=== PATIENT | male | born 1950 ===

== ENCOUNTER 2020-10-03 12:40 | Day surgery (SDC) | payer OTHER ==
[2020-10-03] VITALS (10 sets, daily range): BP systolic 100–137; BP diastolic 57–78; PULSE 48–72; TEMP 97.7–99
[~2020-10-03] VITALS: Ht 175.3 cm; Wt 83.5 kg
[2020-10-03] MEDS ORDERED: ONE-A-DAY ESSE1 EACH PO (14:16)
--- NOTE | 2020-10-03 18:09 | NUR ---
PT TO ROOM 323 PER BED WITH REPORT FROM GHULAM CANTU PACU @5310. VSS, CBI TO DD WITH 9500 MLS CREDIT. IV TO LFA. PT IS A/O X3, LUNGS CTA, BOWEL SOUNDS HYPO, PINKISH DRAINAGE TO BARON BAG.
--- NOTE | 2020-10-03 18:51 | NUR ---
REPORT TO ZAY CANTU.
--- NOTE | 2020-10-03 19:02 | NUR ---
RECEIVED CHANGE OF SHIFT REPORT FROM DAY SHIFT NURSE.
--- NOTE | 2020-10-03 19:54 | NUR ---
OBSERVED GROSS MOVEMENT TO BLE AT THIS TIME. DENIES CHEST PAIN/SHORTNESS OF BREATH. DENIES N/V. OBSERVED CATHETER OUTPUT MED TO LIGHT RED, NO CLOTS IN TUBING OBSERVED.
--- NOTE | 2020-10-03 19:56 | NUR ---
IVF LR STILL RUNNING WITH NO PROBLEMS.
--- NOTE | 2020-10-04 02:01 | NUR ---
C/O TOP OF HEAD WITH PRESSURE, CHRONIC C/O AT HOME AND REQUESTED/GIVEN TYLENOL FOR DISCOMFORT. SEE eMAR.
[2020-10-04 04:16] VITALS: BP 129/60; PULSE 59; TEMP 98.1
--- NOTE | 2020-10-04 06:58 | NUR ---
Pt resting in bed at this time. CBI running moderate rate with pink output. No needs stated, Dr Esteves in to see patient.
--- NOTE | 2020-10-04 07:12 | NUR ---
CHANGE OF SHIFT REPORT GIVEN TO DAY SHIFT NURSE, ROLF Peraza RN.
[2020-10-04 07:15] VITALS: BP 120/70; PULSE 54; TEMP 98.2
--- NOTE | 2020-10-04 09:32 | NUR ---
Initial visit; Patient thanked Environmental Journalist for looking in on him and allowing him to witness the miracle that occured when he was injured while serving in the . Environmental Journalist was blessed and thanked patient for sharing and offered prayer before offering God's blessings.
--- NOTE | 2020-10-04 10:09 | NUR ---
Pt has done well this morning. CBI continues to run at moderate to slow rate with fruit punch colored output. He is standing at bedside and reports feeling well.
--- NOTE | 2020-10-04 10:46 | NUR ---
SW met with the patient to discuss discharge plan. The patient lives in [place] with his , Jerri (ph#[phone]). He reports independence with ADLs and does not have any DME. The patient's PCP is Dr. Ariel Landa at the [facility] and he receives his medications through the [facility]. He reports no difficulties obtaining his meds. The patient does not have a DPOA-HC and he was not interested in completing one at this time. The patient plans to return home with his upon discharge. No additional needs at this time.
[2020-10-04 12:15] VITALS: BP 105/64; PULSE 57; TEMP 98.9
--- NOTE | 2020-10-04 13:43 | NUR ---
Pt continues to do well. He has ambulated in the eric and no issues. CBI continues to run at slow to moderate rate with no clots. Pt has no complaints. He is aware that he is staying the night and as long as his output remains clear, the golden will be removed in the morning. pt is tolerateding general diet and drinking plenty of fluids, IV fluids DC'd. Call light within reach.
--- NOTE | 2020-10-04 15:57 | NUR ---
Pt had some complaints of bladder pain but reports feeling okay now. CBI running a slow rate with light pink output. No other complaints, report given to PEPE Shultz
--- NOTE | 2020-10-04 16:00 | NUR ---
Patient resting in bed,, A&Ox3. Denies pain and discomfort. VSS. IV CDI. CBI infusing w/o complications. No further needs expressed from the patient. Call light within reach
[2020-10-04 16:08] VITALS: BP 110/65; PULSE 62; TEMP 98.6
--- NOTE | 2020-10-04 18:31 | NUR ---
Patient laying in bed, denies pain and discomfort. IV CDI. CBI infusing. No further needs expressed from the patient. Call light within reach
--- NOTE | 2020-10-04 19:15 | NUR ---
RECEIVED CHANGE OF SHIFT REPORT FROM DAY SHIFT NURSE.
[2020-10-04 19:16] VITALS: BP 110/59; PULSE 63; TEMP 98.2
--- NOTE | 2020-10-04 20:00 | NUR ---
DENIES CHEST PAIN/SHORTNESS OF BREATH. DENIES NUMBNESS/TINGLING TO EXTREMITIES. DENIES N/V AT THIS TIME, REPORTS HAD BM TODAY AND IS PASSING FLATUS. DENIES ANY BLADDER/PENIS DISCOMFORT AT THIS TIME, OBSERVED NO BLOODY DRAINAGE FROM AROUND CATHETER SITE WITH CATH CARE DONE. REPORTS DID NOT WANT SCD WRAPS WITH SLEEPING TONIGHT.
--- NOTE | 2020-10-04 23:23 | NUR ---
PATIENT SLEEPING, DOES NOT WAKE WHEN DOOR TO ROOM IS OPENED BY STAFF. OBSERVED BREATHING NONLABORED AND EVEN. CBI CONTINUES AT SLOW RATE WITH OUTPUT OF PALE PINK TINGE CATHETER OUTPUT WITH NO CLOTS OBSERVED IN TUBING.
[2020-10-04 23:56] VITALS: BP 105/57; PULSE 53; TEMP 97.9
[2020-10-05 04:12] VITALS: BP 111/62; PULSE 53; TEMP 98.4
--- NOTE | 2020-10-05 07:12 | NUR ---
CHANGE OF SHIFT REPORT GIVEN TO DAY SHIFT NURSECIERRA.
[2020-10-05 07:30] VITALS: BP 124/68; PULSE 66; TEMP 98.6
--- NOTE | 2020-10-05 07:39 | NUR ---
Patient resting in bed. He reports ordering breakfast, denies nausea. Spoke with about priming and pulling cath. Going to completely clamp CBI and reassess. Int. denies pain or pressure. Student nurse assisting in cares today.
--- NOTE | 2020-10-05 09:11 | NUR ---
Follow-up visit; Patient thanked Plant Puller for looking in on him again this morning and wishing him well and offering God's blessings.
--- NOTE | 2020-10-05 11:39 | NUR ---
Patient ready for discharge. rounded. Orders obtained. Patient has completed 6 bottle routine. zimmerman red output, clear no sediment. patient called his ride.
--- NOTE | 2020-10-05 12:45 | NUR ---
Patient given all discharge teaching, he denies questions or concerns. We reviewed diet & activity restrictions. Int dc by student nurse. Patient tolerated lunch. His significant other taking him home. Patient ambulated out with all belonings.
== END 2020-10-05 12:47 | disposition home or self-care (01) ==
LOC: SDCO 12:40 → SURG 18:00 → SDCO 10-05 12:47
DX: N40.1 Benign prostatic hyperplasia with lower urinary tract symptoms (principal); N32.0 Bladder-neck obstruction; R35.0 Frequency of micturition; R39.15 Urgency of urination; R39.12 Poor urinary stream; M19.90 Unspecified osteoarthritis, unspecified site; Z85.828 Personal history of other malignant neoplasm of skin; Z88.8 Allergy status to other drugs, medicaments and biological substances; K21.9 Gastro-esophageal reflux disease without esophagitis; F32.9 Major depressive disorder, single episode, unspecified; F41.9 Anxiety disorder, unspecified; F43.10 Post-traumatic stress disorder, unspecified
CPT/HCPCS: OP; J0690; J2250; J2405; J2704; J3010; J3480; J7120

== ENCOUNTER 2021-07-31 10:11 | Emergency (ER) | payer OTHER ==
[~2021-07-31] VITALS: Ht 175.3 cm; Wt 79.5 kg
[~2021-07-31 10:11] MED LIST: ONE-A-DAY ESSE1 EACH PO
[2021-07-31 10:21] VITALS: TEMP 97.9
[2021-07-31 10:36] LABS: BASO # 0.1 K/mm3 (0.0-0.2); BASO % 0.9 % (0.0-2.0); EOS # 0.1 K/mm3 (0.0-0.7); EOS % 1.5 % (0-4.0); GRAN % 61.2 % (42.2-75.2); HEMOGLOBIN 14.5 g/dl (13.5-18.0); LYMPH # 1.9 K/mm3 (1.2-3.4); LYMPH % 29.6 % (20.0-51.0); MEAN CELL VOLUME 92 fl (80.0-100.0); MEAN CORPUSCULAR HEMOGLOBIN 30 pg (27.0-31.0); MEAN CORPUSCULAR HGB CONC 33 g/dl (33.0-37.0); MEAN PLATELET VOLUME 9.6 fl (7.4-10.4); MONO # 0.4 K/mm3 (0.1-0.6); MONO % 6.5 % (1.7-9.3); PLATELET COUNT 255 K/mm3 (130-400); RED BLOOD COUNT 4.81 M/mm3 (4.20-5.60); REDCELL DISTRIBUTION WIDTH-CV 13.9 % (11.5-14.5)
[2021-07-31 10:56] LABS: ALANINE AMINOTRANSFERASE 19 U/L (0-55); ALBUMIN 3.9 gm/dL (3.4-4.8); ALKALINE PHOSPHATASE 82 U/L (40-150); ANION GAP 8 mmol/L (7-16); AST,SGOT 20 U/L (5-34); BILIRUBIN,TOTAL 0.9 mg/dL (0.2-1.2); BLOOD UREA NITROGEN 14 mg/dL (8-26); CALCIUM 9.5 mg/dL (8.4-10.2); CARBON DIOXIDE 26 mmol/L (23-31); CHLORIDE 108 mmol/L (98-107); CREATININE, serum 0.85 mg/dL (0.72-1.25); GLUCOSE 96 mg/dL (70-99); POTASSIUM 4.4 mmol/L (3.5-4.5); SODIUM 142 mmol/L (136-145)
[2021-07-31 11:04] LABS: TROPONIN-I < 0.010 ng/mL (0.00-0.033)
[2021-07-31] MEDS ORDERED: ANTIVERT 25MG25 MG PO (11:26)
[2021-07-31] MEDS ORDERED: ZOFRAN ODT4 MG PO (11:26)
[2021-07-31 11:54] VITALS: BP 148/89; PULSE 60
== END 2021-07-31 11:56 | disposition home or self-care (01) ==
LOC: COL.ER 10:11
PROVIDERS: Physician Assistant
DX: H81.10 Benign paroxysmal vertigo, unspecified ear (principal)
CPT/HCPCS: J2405; J7030

== ENCOUNTER 2022-07-02 12:51 | Emergency (ER) | payer OTHER ==
[~2022-07-02] VITALS: Ht 152.4 cm; Wt 81.8 kg
[~2022-07-02 12:51] MED LIST changes: +ANTIVERT 25MG25 MG PO; +ZOFRAN ODT4 MG PO
[2022-07-02 13:12] VITALS: TEMP 97.3
[2022-07-02 14:01] LABS: BASO # 0.1 K/mm3 (0.0-0.2); BASO % 0.9 % (0.0-2.0); EOS # 0.1 K/mm3 (0.0-0.7); EOS % 1.5 % (0.0-4.0); GRAN # 3.6 K/mm3 (1.4-6.5); GRAN % 55.9 % (42.2-75.2); HEMOGLOBIN 14.5 g/dl (13.5-18.0); LYMPH # 2.1 K/mm3 (1.2-3.4); LYMPH % 32.8 % (20.0-51.0); MEAN CELL VOLUME 90 fl (80.0-100.0); MEAN CORPUSCULAR HEMOGLOBIN 31 pg (27-31); MEAN CORPUSCULAR HGB CONC 35 g/dl (33.0-37.0); MEAN PLATELET VOLUME 9.6 fl (7.4-10.4); MONO # 0.6 K/mm3 (0.1-0.6); MONO % 8.7 % (1.7-9.3); PLATELET COUNT 211 K/mm3 (130-400); RED BLOOD COUNT 4.68 M/mm3 (4.20-5.60); REDCELL DISTRIBUTION WIDTH-CV 13.4 % (11.5-14.5)
[2022-07-02 14:19] LABS: ALANINE AMINOTRANSFERASE 19 U/L (0-55); ALBUMIN 3.6 gm/dL (3.4-4.8); ALKALINE PHOSPHATASE 80 U/L (40-150); ANION GAP 6 mmol/L (7-16); AST,SGOT 16 U/L (5-34); BILIRUBIN,TOTAL 0.6 mg/dL (0.2-1.2); BLOOD UREA NITROGEN 16 mg/dL (8-26); CALCIUM 9.3 mg/dL (8.4-10.2); CARBON DIOXIDE 25 mmol/L (23-31); CHLORIDE 110 mmol/L (98-107); CREATININE, serum 0.79 mg/dL (0.72-1.25); GLUCOSE 115 mg/dL (70-99); SODIUM 141 mmol/L (136-145); TOTAL PROTEIN 6.7 gm/dL (6.2-8.1)
[2022-07-02 14:25] LABS: TROPONIN-I < 0.010 ng/mL (0.00-0.033)
[2022-07-02 15:41] VITALS: BP 129/81; PULSE 55
== END 2022-07-02 15:44 | disposition home or self-care (01) ==
LOC: COL.ER 12:51
PROVIDERS: Personal Emergency Response Attendant
DX: R41.0 Disorientation, unspecified (principal); Z28.310 Unvaccinated for COVID-19; Z88.5 Allergy status to narcotic agent